=== PATIENT | female | born 1990 | race Caucasian/White ===

== ENCOUNTER 2018-08-02 14:21 | Emergency (ER) | payer OTHER, SELFPAY ==
[2018-08-02 14:22] VITALS: BP 109/63; PULSE 83; RESP 16; TEMP 36.6; O2SAT 98; BMI 33.5
[2018-08-02 14:32] VITALS: PULSE 82; RESP 15; O2SAT 97
[2018-08-02 15:01] LABS: Bedside Glucose 86 mg/dL (70-110)
[2018-08-02] MEDS: DiphenhydrAMINE 50 MG/ML Syringe 25 MG IV (15:05)
[2018-08-02] MEDS: Metoclopramide 10 MG/2 ML Vial IV (15:05)
[2018-08-02] MEDS: 0.9% Normal Saline 1,000 ML 999 ML IV (15:05)
[2018-08-02 15:30] LABS: Thyroid Stim Hormone (TSH) 2.04 uIU/mL (0.358-3.74)
--- NOTE | 2018-08-02 15:49 | ED.VISSUMM ---
- ER Visit Summary Date of Service: 08/02/18 Chief Complaint: Headache History of Present Illness: The patient is a 28 F who presents with a headache. She has had this today. Nothing makes it better or worse. She lost vision in her left eye which is typical for her migraines. She felt her speech was off but this is improved. She has numbness and tingling to her hands. She does have a history of migraine headaches. She is currently 29 weeks gestation. She was started on Synthroid on Friday and she is concerned about side effect of this medication. Physical Examination: Vital signs reviewed. HEENT exam unremarkable. Heart is regular rate and rhythm without murmurs. Lungs are clear to auscultation. Abdomen is soft and nontender. Extremities reveal no edema. Skin exam normal. Neurologic exam normal. Test Results: TSH is 2.04. Blood sugar normal Emergency Department Course and Treatment: Patient was given normal saline, Reglan and Benadryl. She feels much better. She has no neurological deficits at this time. She will continue her Synthroid until she calls her [employer] tomorrow to see if they would like her to continue it. Her TSH is in the normal range even though she has been on this medication for 2 days. Patient will be discharged use Tylenol for her headaches at home. Treatment Plan: [] Disposition: Discharge Impression: Migraine headache This note was generated with [employer] dictation software. It may contain incorrect words, spelling, and punctuation that were not noted in review of the chart prior to signing ED Disposition - Plan for ED Patient: Referrals: [facility] ,Out of [Primary Care Provider] -
--- NOTE | 2018-08-02 15:51 | ED.DEP ---
ED Disposition - Plan for ED Patient: Disposition: Home or Assisted Living Instructions: ED Headache Migraine Referrals: [facility],Out of [Primary Care Provider] -
== END 2018-08-02 16:11 | disposition home or self-care (01) ==
PROVIDERS: Emergency Provider Emergency Medicine
DX: O99.353 Diseases of the nervous system complicating pregnancy, third trimester (principal); G43.909 Migraine, unspecified, not intractable, without status migrainosus; Z3A.29 29 weeks gestation of pregnancy
CPT/HCPCS: 82962; 84443; 96361; 96374; 96375; 99283; J7030; A4216